=== PATIENT | male | born 1990 | race Caucasian/White ===

== ENCOUNTER 2019-03-24 21:51 | Emergency (ER) | payer MEDICAID ==
[~2019-03-24] VITALS: Ht 180.3 cm; Wt 74.8 kg
[2019-03-24 21:53] VITALS: BP 165/100
--- NOTE | 2019-03-24 21:58 | NUR ---
ED Nurse Note: Patient brought in by ambulance, RA 62 with complaints of feeling weak after meth and heroin use following cessation. Patient presents ambulatory with steady gait, full body lesions varying between petechiae and erthematic rash-like lesions of larger diameter. Patient reports no pain but expresses discomfort with itching all over. Will continue to monitor.
--- NOTE | 2019-03-24 22:08 | Emergency Room Report ---
History of Present Illness General Chief Complaint: Substance Abuse Source: Patient Present Illness HPI This is a 28-year-old male with history of drug abuse. He presents with chief complaint of feeling dehydrated and substance abuse. Is been using heroin and methamphetamine for the last 3 days. He does injection and also oral ingestion. Last use is an hour ago. He said he felt nauseous and dehydrated. Also has diffuse rash and itching. No fever chills but felt weak. He denies any chest pain. Similar symptom a couple years ago when he had to be admitted for acute renal failure. Not suicidal or homicidal. Allergies: Coded Allergies: No Known Allergies (Unverified , 03/24/19) Patient History Past Medical History: see triage record, old chart reviewed Past Surgical History: none Pertinent Family History: none Social History: Reports: smoking, drug use Immunizations: other Reviewed Nursing Documentation: PMH: Agreed; PSxH: Agreed Nursing Documentation-PMH Past Medical History: No History, Except For Review of Systems Constitutional: Reports: weakness Eye: Denies: eye pain, blurred vision ENT: Denies: ear pain, nose congestion, throat swelling Respiratory: Denies: cough, shortness of breath Cardiovascular: Denies: chest pain, palpitations Gastrointestinal: Denies: abdominal pain, diarrhea, nausea, vomiting Musculoskeletal: Denies: back pain, joint pain Skin: Reports: rash Neurological: Denies: headache, numbness Endocrine: Denies: increased thirst, increased urine Hematologic/Lymphatic: Denies: easy bruising All Other Systems: negative except mentioned in HPI Physical Exam Vital Signs Date Time Temp Pulse Resp B/P (MAP) Pulse Ox O2 Delivery O2 Flow Rate FiO2 03/24/19 21:53 98.2 125 16 165/100 (121) 95 Room Air Vitals with high blood pressure and tachycardia Sp02 EP Interpretation: reviewed, normal General Appearance: well appearing, no apparent distress, alert Head: normocephalic, atraumatic Eyes: bilateral eye PERRL, bilateral eye EOMI ENT: hearing grossly normal, normal pharynx Neck: full range of motion, supple, no meningismus Respiratory: chest non-tender, lungs clear, normal breath sounds Cardiovascular #1: regular rate, rhythm, no murmur Gastrointestinal: normal bowel sounds, non tender, no mass, no organomegaly, no bruit, non-distended Musculoskeletal: back normal, normal range of motion, gait/station normal Neurologic: alert Psychiatric: mood/affect normal Skin: other - He has skin excoriation with surrounding redness on his upper extremity and feet. On his face especially of the chin area he has scabbed over drainage of ulceration. Medical Decision Making Diagnostic Impression: Primary Impression: Substance abuse Additional Impressions: Cellulitis Qualified Codes: L03.90 - Cellulitis, unspecified Hypokalemia Rhabdomyolysis Qualified Codes: M62.82 - Rhabdomyolysis ER Course Patient presents with substance abuse. He is mildly dehydrated with mild rhabdo. No evidence of renal failure. Will discharge home. Last Vital Signs Date Time Temp Pulse Resp B/P (MAP) Pulse Ox O2 Delivery O2 Flow Rate FiO2 03/24/19 21:53 98.2 125 16 165/100 (121) 95 Room Air Status: improved Disposition: HOME, SELF-CARE Condition: Stable Scripts Clindamycin Hcl (CLINDAMYCIN HCL) 300 Mg Capsule 300 MG ORAL THREE TIMES A DAY, #21 CAP Prov: Adeel Gimenez MD 03/25/19 Patient Instructions: Substance Use Disorder Additional Instructions: Abstain from drugs and alcohol. Follow-up with your doctor in 7 days. Go to rehab. Return if worse. Adeel Gimenez MD Mar 24, 2019 22:08
[2019-03-24] MEDS ORDERED: Clindamycin 900mg 50 ML IVPB ONE (22:15)
--- NOTE | 2019-03-24 22:42 | NUR ---
ED Nurse Note: Patient expressed increased itching, ERMd notified and benadryl requested, Will continue to monitor.
[2019-03-24] MEDS ORDERED: DiphenhydrAMINE 50mg/ml Inj IVP ONE (22:45)
[2019-03-24 22:51] LABS: ANION GAP -4 mmol/L (5-15); BLOOD UREA NITROGEN 33 mg/dL (7-18); CALCIUM 9.7 MG/DL (8.5-10.1); CARBON DIOXIDE 25 MMOL/L (21-32); CHLORIDE 100 MMOL/L (98-107); CREATININE 1.2 MG/DL (0.55-1.30); SODIUM 121 MMOL/L (136-145)
[2019-03-24 22:54] LABS: BASOPHILS % (AUTO) 0.7 % (0.0-2.0); EOSINOPHILS % (AUTO) 2.4 % (0.0-3.0); HEMATOCRIT 38.3 % (42.0-52.0); HEMOGLOBIN 13.8 G/DL (14.2-18.0); LYMPHOCYTES % (AUTO) 16.1 % (20.0-45.0); MEAN CORPUSCULAR VOLUME 88 FL (80-99); MONOCYTES % (AUTO) 14.1 % (1.0-10.0); NEUTROPHILS % (AUTO) 66.8 % (45.0-75.0); PLATELET COUNT 298 K/UL (150-450); RED BLOOD COUNT 4.37 M/UL (4.70-6.10); RED CELL DISTRIBUTION WIDTH 10.3 % (11.6-14.8); WHITE BLOOD COUNT 11.6 K/UL (4.8-10.8)
[2019-03-24 23:06] LABS: CKMB 14.5 NG/ML (0.0-3.6); CREATINE KINASE 942 U/L (26-308)
--- NOTE | 2019-03-25 00:12 | NUR ---
ED Nurse Note: Patient resting comfortably and attempting to render a urine sample. Will continue to monitor.
[2019-03-25 00:44] LABS: APPEARANCE,URINE CLEAR; BILIRUBIN, URINE NEGATIVE (NEGATIVE); COLOR,URINE YELLOW; GLUCOSE, URINE (UA) NEGATIVE (NEGATIVE); KETONES,URINE 4+ (NEGATIVE); LEUKOCYTE ESTERASE ,URINE NEGATIVE (NEGATIVE); NITRITE,URINE NEGATIVE (NEGATIVE); PH,URINE 5 (4.5-8.0); UROBILINOGEN,URINE NORMAL MG/DL (0.0-1.0)
[2019-03-25 00:45] LABS: PROTEIN,URINE NEGATIVE (NEGATIVE)
[2019-03-25] MEDS ORDERED: PHENAZOPYRIDIN200 MG ORAL (00:56)
[2019-03-25] MEDS ORDERED: CEPHALEXIN500 MG ORAL (00:56)
--- NOTE | 2019-03-25 01:12 | NUR ---
ED Nurse Note: Patient is up and pacing in room, continually scratching and rubbing his skin. ERMD informed. Will continue to monitor and service orders.
[2019-03-25] MEDS ORDERED: DiphenhydrAMINE 50mg/ml Inj IVP ONE (02:00)
--- NOTE | 2019-03-25 02:30 | NUR ---
ED Nurse Note: Patient tolerated medicaiton well. Patient reports itching has been reduced. Will continue to monitor.
[2019-03-25] MEDS ORDERED: CLINDAMYCIN HC300 MG ORAL (03:17)
--- NOTE | 2019-03-25 03:30 | NUR ---
ED Nurse Note: Patient has concerns that he has scabies, and is requesting medication for his suspicion. ERMD informed and talke with patient about clinical findings.
--- NOTE | 2019-03-25 04:00 | NUR ---
ED Nurse Note: Per patient request, sandwich, apple and soda provided.
[2019-03-25 04:07] VITALS: BP 165/100
--- NOTE | 2019-03-25 04:07 | NUR ---
ED Nurse Note: Patient cleared for discahrge by ERMChristiano but is unwilling to stay until buses begin to run. Patient IV and ID band were removed. Patient verbalized understanding of discharge instructions. Patient is ambulatory with steady gait and A&Ox4. Patietn left walking and was unable to provide destination. Patient departed with all belongings.
== END 2019-03-25 04:07 | disposition home or self-care (01) ==
LOC: EDBD 21:51 → EMR 22:33
DX: F11.10 Opioid abuse, uncomplicated (principal); F15.10 Other stimulant abuse, uncomplicated; L03.90 Cellulitis, unspecified; E87.6 Hypokalemia; M62.82 Rhabdomyolysis
CPT/HCPCS: 36415; 80048; 81001; 82550; 82553; 85025; 96361; 96365; 96375; 96376; J1200; J2405; J7030; S0077; Z7502; 99284; J8499